=== PATIENT | male | born 1955 | race African-American/Black ===

== ENCOUNTER 2018-10-24 14:43 | Inpatient (IN) | payer MEDICARE, OTHER ==
[~2018-10-24] VITALS: Ht 165.1 cm; Wt 85.0 kg
[2018-10-24] MEDS ORDERED: SOD CHLORIDE 0.9% 1,000 ML IV STA (14:48)
--- NOTE | 2018-10-24 14:59 | ERD ---
ER Documentation Chief Complaint Chief Complaint ALOC x last night HPI 63-year-old male with a history of stroke and epilepsy with chronic confusion [facility] by the order of Dr. Wright due to increasing altered mental status since last night. He has been having shaking episodes but no true seizures. ROS Unable to obtain due to chronic encephalopathy Medications Home Meds Reported Medications Acetaminophen* (Tylenol*) 325 Mg Tablet, 650 MG PO Q6H PRN for MILD PAIN LEVEL 1-3, TAB 10/24/18 Timolol Maleate* (Timoptic*) 0.25%-5ml Opht, 1 DROP BOTH EYES BID, #1 EA 10/24/18 Hydrocodone/Acetaminophen ([place] 5-325 Tablet) 1 Each Tablet, 1 EACH PO Q6H PRN for FOR PAIN 4-01/29, TAB 10/24/18 Nitroglycerin* (Nitroglycerin* SL) 0.4 Mg Tab.subl, 0.4 MG SL Q5MIN PRN for CHEST PAIN, BOTTLE 10/24/18 Magnesium Hydroxide* (Milk Of Magnesia*) 400 Mg/5 Ml Oral.susp, 30 ML PO DAILY, ML 10/24/18 Levetiracetam* (Levetiracetam*) 1,000 Mg Tablet, 2000 MG PO BID, TAB 10/24/18 Hydralazine Hcl* (Hydralazine Hcl*) 25 Mg Tab, 25 MG PO Q6H PRN for IF SBP>150, #60 TAB 10/24/18 Sodium Phosphate,[place]-Dibasic (Enema Ready To Use) 133 Ml Enema, 118 ML RC NEEDED, ENEMA 10/24/18 Bisacodyl (Dulcolax) 10 Mg Supp.rect, 10 MG RC DAILY PRN for PRN, SUPP.RECT 10/24/18 Dorzolamide-Timolol* (Cosopt*) 2%-0.5% Pres Free Droperette, 1 DROP BOTH EYES BID, DROP 10/24/18 Carvedilol* (Carvedilol*) 12.5 Mg Tablet, 12.5 MG PO BID, #60 TAB HOLD IF SBP<110 OR HR<60 10/24/18 Lorazepam* (Lorazepam*) 1 Mg Tablet, 1 MG PO Q4H PRN for SEIZURES, #60 TAB STOP DATE 11/06/18 10/24/18 Aspirin* (Aspirin* Chew) 81 Mg Tab.chew, 81 MG PO DAILY, TAB.CHEW 10/24/18 Allergies Allergies: Coded Allergies: No Known Allergy (Unverified , 10/24/18) PMhx/Soc Medical and Surgical Hx: Unable to obtain History of Surgery: No (unk) Hx Neurological Disorder: Yes (Epilepsy, stroke affecting right side, apraxia, dementia) Hx Cardiac Disorders: Yes (HTN, HYPERLIPIDEMIA, CAD, NSTEMI) Hx Miscellaneous Medical Probl: Yes ( DM, glaucoma) Hx Alcohol Use: No Hx Substance Use: No Hx Tobacco Use: No FmHx Unable to obtain Physical Exam Vitals Vital Signs Date Temp Pulse Resp B/P (MAP) Pulse Ox O2 O2 Flow FiO2 Time Delivery Rate 10/24/18 81 18 157/67 99 Nasal 2.0 18:32 (97) Cannula 10/24/18 98.0 78 20 146/73 96 Room Air 17:30 (97) 10/24/18 98.2 76 18 172/77 100 Room Air 15:20 (108) 10/24/18 80 18 116/75 100 14:47 (89) Physical Exam Const: No acute distress. Only answers yes to all questions. Head: Atraumatic Eyes: Normal Conjunctiva ENT: Normal External Ears, Nose and Mouth. Neck: Full range of motion. No meningismus. Resp: Clear to auscultation bilaterally Cardio: Regular rate and rhythm, no murmurs Abd: Soft, non tender, non distended. Normal bowel sounds Skin: No petechiae or rashes Back: No midline or flank tenderness Ext: No cyanosis, or edema Neur: Awake and alert, no facial asymmetry, following some commands, moving all extremities spontaneously, motor weakness noted on the right compared to the left. Only answering yes to all questions. Normal speech. No seizure-like activity. Psych: Normal Mood and Affect Result Diagram: 10/24/18 1522 10/24/18 1522 Results 24 hrs Laboratory Tests Test 10/24/18 15:19 10/24/18 15:22 10/24/18 16:11 Bedside Glucose 244 mg/dL White Blood Count 14.3 10^3/ul Red Blood Count 4.31 10^6/ul Hemoglobin 12.7 g/dl Hematocrit 36.6 % Mean Corpuscular Volume 84.9 fl Mean Corpuscular Hemoglobin 29.5 pg Mean Corpuscular 34.7 g/dl Hemoglobin Concent Red Cell Distribution Width 11.3 % Platelet Count 225 10^3/UL Mean Platelet Volume 11.5 fl Immature Granulocytes % 0.500 % Neutrophils % 84.5 % Lymphocytes % 9.9 % Monocytes % 4.8 % Eosinophils % 0.2 % Basophils % 0.1 % Nucleated Red Blood Cells % 0.0 /100WBC Immature Granulocytes # 0.070 10^3/ul Neutrophils # 12.1 10^3/ul Lymphocytes # 1.4 10^3/ul Monocytes # 0.7 10^3/ul Eosinophils # 0.0 10^3/ul Basophils # 0.0 10^3/ul Nucleated Red Blood Cells # 0.0 10^3/ul Sodium Level 139 mmol/L Potassium Level 4.4 mmol/L Chloride Level 102 mmol/L Carbon Dioxide Level 30 mmol/L Anion Gap 7 Blood Urea Nitrogen 30 mg/dl Creatinine 1.69 mg/dl Est Glomerular Filtrat 50 mL/min Rate mL/min Glucose Level 266 mg/dl Calcium Level 8.8 mg/dl Total Bilirubin 0.5 mg/dl Direct Bilirubin 0.00 mg/dl Indirect Bilirubin 0.5 mg/dl Aspartate Amino Transf (AST/SGOT) 24 IU/L Alanine 21 IU/L Aminotransferase (ALT/SGPT) Alkaline Phosphatase 109 IU/L Troponin I 0.144 ng/ml Total Protein 7.3 g/dl Albumin 3.4 g/dl Globulin 3.90 g/dl Albumin/Globulin Ratio 0.87 Urine Color YELLOW Urine Clarity CLEAR Urine pH 6.0 Urine Specific [place] 1.014 Urine Ketones NEGATIVE mg/dL Urine Nitrite NEGATIVE mg/dL Urine Bilirubin NEGATIVE mg/dL Urine Urobilinogen NEGATIVE mg/dL Urine Leukocyte Esterase NEGATIVE Cher/ul Urine Microscopic RBC 9 /HPF Urine Microscopic WBC 1 /HPF Urine Bacteria FEW /HPF Urine Hemoglobin NEGATIVE mg/dL Urine Glucose 3+ mg/dL Urine Total Protein 3+ mg/dl Current Medications Medications Dose Sig/[place] Start Time Status Last (Trade) Ordered Route PRN Stop Time Admin Dose Reason Admin Sodium 1,000 ml @ Q1H STAT 10/24/18 DC 10/24/18 Chloride 1,000 mls/hr IV 14:48 10/24/18 15:16 15:47 Ondansetron 4 mg ER BRIDGE 7/5/19 HCl (Zofran PRN IV 17:30 10/25/18 Inj) NAUSEA/VOMITI 17:29 NG 650 mg ER BRIDGE 10/24/18 Acetaminophen PRN PO 17:30 10/25/18 (Tylenol .MILD PAIN 17:29 Tab) 1-3 OR TEMP Procedures/MDM EMERGENT LABS AND DIAGNOSTIC STUDIES: Lab Results above were reviewed and interpreted by me. CBC: Leukocytosis. Unknown etiology, doubt infection CMP: Elevated BUN and creatinine, consistent with chronic renal insufficiency, at patient's baseline. Hyperglycemic without evidence of acidosis. No evidence of clinically significant electrolyte abnormality, hypoglycemia, liver disease, or biliary obstruction Troponin elevated, possibly due to renal disease versus myocardial ischemia UA: no evidence of infection 12-lead EKG was interpreted by Cat Lanier MD: Normal Sinus Rhythm Normal axis Normal intervals No acute ST or T wave changes suggestive of acute ischemia or STEMI. Radiology Results as interpreted by Radiology below were reviewed by SMiranda Lanier MD: Chest x-ray shows no acute abnormalities CT brain shows no acute abnormalities Initial Nursing notes reviewed. Previous Medical Records requested via the Electronic Health Record. EMERGENCY DEPARTMENT COURSE / MEDICAL DECISION MAKING: Patient is presenting with increased seizure-like activity per the [facility]dc. He has not had any seizure-like activity here. Vitals were unremarkable. Basic work-up showed no significant abnormalities other than elevated troponin, which may be elevated secondary to his CKD. EKG does not show any signs of ischemia. CT head showed no acute abnormalities. Patient's case was discussed with his primary care doctor, Dr. Heydi Wright. He requested admission to Dr. Ugalde for observation. I spoke with Dr. Ugalde, he accepted the patient for admission. Departure Diagnosis: Primary Impression: Observed seizure-like activity Additional Impressions: Leukocytosis Leukocytosis type: unspecified Qualified Codes: D72.829 - Elevated white blood cell count, unspecified CKD (chronic kidney disease) Chronic kidney disease stage: unspecified stage Qualified Codes: N18.9 - Chronic kidney disease, unspecified Elevated troponin Condition: ANIBAL Griffin MD Oct 24, 2018 14:59
[2018-10-24] MEDS ORDERED: ASPI-903 PO (16:35)
[2018-10-24] MEDS ORDERED: LORA1TAB PO (16:36)
[2018-10-24] MEDS ORDERED: CARV12.579 PO (16:37)
[2018-10-24] MEDS ORDERED: DORZ1DRO7 BOTH EYES (16:38)
[2018-10-24] MEDS ORDERED: BISA10SU55 RC (16:39)
[2018-10-24] MEDS ORDERED: HYDR-3671 PO (16:40)
[2018-10-24] MEDS ORDERED: NA P133E39 RC (16:40)
[2018-10-24] MEDS ORDERED: LEVE10006 PO (16:41)
[2018-10-24] MEDS ORDERED: MAGN400O19 PO (16:42)
[2018-10-24] MEDS ORDERED: NITR0.4T32 SL (16:42)
[2018-10-24] MEDS ORDERED: HYDR-4011 PO (16:43)
[2018-10-24] MEDS ORDERED: TML25OP5 BOTH EYES (16:44)
[2018-10-24] MEDS ORDERED: ACET325T33 PO (16:46)
[2018-10-24] MEDS ORDERED: ACETAMINOPHEN 325 MG TAB PO PRN (17:30)
[2018-10-24] MEDS ORDERED: ONDANSETRON 4 MG INJ IV PRN (17:30)
[2018-10-25] MEDS ORDERED: ASPIRIN 81 MG TAB PO ONE (05:30)
[2018-10-25 06:25] VITALS: PULSE 77
[2018-10-25 06:54] VITALS: BP 174/78; PULSE 78; RESP 23
[2018-10-25 07:27] VITALS: BP 166/74; PULSE 76; RESP 16
[2018-10-25 08:00] VITALS: Ht 165.1 cm; Wt 85.0 kg
[2018-10-25] MEDS: LEVETIRACETAM 500 MG (PMX) 100 ML IVPB SCH ×2 (08:53→22:25)
[2018-10-25] MEDS ORDERED: METOPROLOL 50 MG TAB PO ONE (09:00)
[2018-10-25 11:11] VITALS: BP 155/66; PULSE 69; RESP 17
[2018-10-25 15:24] VITALS: BP 145/67; PULSE 72; RESP 17
--- NOTE | 2018-10-25 16:40 | HP ---
Date/Time of Note Date/Time of Note DATE: 10/25/18 TIME: 16:05 Assessment/Plan VTE Prophylaxis Risk score (from Nsg)>0 risk: 3 SCD applied (from Nsg): Yes Lines/Catheters IV Catheter Type (from Nrsg): Saline Lock Assessment/Plan Assessment/Plan NSTEMI - Cardiology consult- notified Observed seizure-like activity - Neurology consulted Leukocytosis - monitor CBC CKD (chronic kidney disease) - Nephro consult notified DM HTN CAD Result Diagram: 10/24/18 1522 10/24/18 1522 Results 24hrs Laboratory Tests Test 10/24/18 16:11 10/25/18 06:00 Urine Color YELLOW Urine Clarity CLEAR Urine pH 6.0 Urine Specific [place] 1.014 Urine Ketones NEGATIVE Urine Nitrite NEGATIVE Urine Bilirubin NEGATIVE Urine Urobilinogen NEGATIVE Urine Leukocyte Esterase NEGATIVE Urine Microscopic RBC 9 H Urine Microscopic WBC 1 Urine Bacteria FEW A Urine Hemoglobin NEGATIVE Urine Glucose 3+ H Urine Total Protein 3+ H Troponin I 0.089 HIV (1&2) Antibody NEGATIVE HPI/ROS Admit Date/Time Admit Date/Time Oct 24, 2018 at 17:29 PMH/Family/Social Past Medical History Medications Current Medications Ondansetron HCl (Zofran Inj) 4 mg ER BRIDGE PRN IV NAUSEA/VOMITING; Start 10/24/18 at 17:30; Stop 10/25/18 at 17:29 Acetaminophen (Tylenol Tab) 650 mg ER BRIDGE PRN PO .MILD PAIN 1-3 OR TEMP; Start 10/24/18 at 17:30; Stop 10/25/18 at 17:29 Levetiracetam 100 ml @ 400 mls/hr BID IVPB Last administered on 10/25/18at 08:53; Admin Dose 400 MLS/HR; Start 10/25/18 at 09:00 Hydralazine HCl (Apresoline) 10 mg Q4H PRN IV ELEVATED SYSTOLIC BP; Start 10/25/18 at 05:30 Coded Allergies: No Known Allergy (Unverified , 10/24/18) Family History Significant Family History: other Social History Smoking Status: Never smoker Exam/Review of Systems Vital Signs Vitals Vital Signs Date Temp Pulse Resp B/P (MAP) Pulse Ox O2 O2 Flow FiO2 Time Delivery Rate 10/25/18 97.9 72 17 145/67 98 15:24 (93) 10/25/18 Nasal 2.0 08:40 Cannula Intake and Output 10/24/18 10/24/18 10/25/18 1515:00 23:00 07:00 IntakeIntake Total 1000 ml BalanceBalance 1000 ml Exam Constitutional: alert Psych: nl mood/affect CAITY DAVIES Oct 25, 2018 16:15
--- NOTE | 2018-10-25 19:41 | CONS ---
Assessment/Plan Assessment/Plan Assessment/Plan (Daily) 1. acute kidney injury on CKD III due to Prerenal azotemia 2. H/o CKD III due to HTN 3. Breakthrough seizures with H/o Seizure disorder 4. H/o HTN 5. H/o HL 6. Elevated Troponin 7.Leucocytosis Plan: admitted to telemetry floor IVF For hydration BUN/Cr bumped to 32/1.81, other electrolytes stable IV keppra 500mg BID Nifedipine 30mg PO daily Medical [facility] for Elevated troponin Thanks for consultation , I will continue to follow up Consultation Date/Type/Reason Admit Date/Time Oct 24, 2018 at 17:29 Date of Consultation: Oct 25, 2018 Type of Consult NEPHROLOGY Reason for Consultation Acute on chronic renal failure, H/o CKD III Requesting Provider: SAKSHI CRUZ MD Date/Time of Note DATE: 10/25/18 TIME: 19:40 Hx of Present Illness 63-year-old male with a history of stroke and epilepsy with chronic confusion [facility] his [facility] by the order of Dr. Webb due to increasing altered mental status since last night. He has been having shaking episodes but no true seizures. BUN/Cr 30/1.69 on admission which bumped to 32/1.81- Renal has been consulted for acute renal failure vs acute on chronic renal failure Constitutional: no complaints ENT: no complaints Respiratory: no complaints Cardiovascular: no complaints Gastrointestinal: no complaints Genitourinary: no complaints Musculoskeletal: no complaints Skin: no complaints Neurologic: seizure Endocrine: no complaints Lymphatic: no complaints Psychological: no complaints Immunologic: no complaints Past Medical History Medical History: high cholesterol, hypertension, other (Seizures, H/o CKD ) Home Meds Reported Medications Acetaminophen* (Tylenol*) 325 Mg Tablet, 650 MG PO Q6H PRN for MILD PAIN LEVEL 1-3, TAB 10/24/18 Timolol Maleate* (Timoptic*) 0.25%-5ml Opht, 1 DROP BOTH EYES BID, #1 EA 10/24/18 Hydrocodone/Acetaminophen ([place] 5-325 Tablet) 1 Each Tablet, 1 EACH PO Q6H PRN for FOR PAIN 4-10/10, TAB 10/24/18 Nitroglycerin* (Nitroglycerin* SL) 0.4 Mg Tab.subl, 0.4 MG SL Q5MIN PRN for CHEST PAIN, BOTTLE 10/24/18 Magnesium Hydroxide* (Milk Of Magnesia*) 400 Mg/5 Ml Oral.susp, 30 ML PO DAILY, ML 10/24/18 Levetiracetam* (Levetiracetam*) 1,000 Mg Tablet, 2000 MG PO BID, TAB 10/24/18 Hydralazine Hcl* (Hydralazine Hcl*) 25 Mg Tab, 25 MG PO Q6H PRN for IF SBP>150, #60 TAB 10/24/18 Sodium Phosphate,[place]-Dibasic (Enema Ready To Use) 133 Ml Enema, 118 ML RC NEEDED, ENEMA 10/24/18 Bisacodyl (Dulcolax) 10 Mg Supp.rect, 10 MG RC DAILY PRN for PRN, SUPP.RECT 10/24/18 Dorzolamide-Timolol* (Cosopt*) 2%-0.5% Pres Free Droperette, 1 DROP BOTH EYES BID, DROP 10/24/18 Carvedilol* (Carvedilol*) 12.5 Mg Tablet, 12.5 MG PO BID, #60 TAB HOLD IF SBP<110 OR HR<60 10/24/18 Lorazepam* (Lorazepam*) 1 Mg Tablet, 1 MG PO Q4H PRN for SEIZURES, #60 TAB STOP DATE 11/06/18 10/24/18 Aspirin* (Aspirin* Chew) 81 Mg Tab.chew, 81 MG PO DAILY, TAB.CHEW 10/24/18 Medications Current Medications Levetiracetam 100 ml @ 400 mls/hr BID IVPB Last administered on 10/25/18at 08:53; Admin Dose 400 MLS/HR; Start 10/25/18 at 09:00 Hydralazine HCl (Apresoline) 10 mg Q4H PRN IV ELEVATED SYSTOLIC BP; Start 10/25/18 at 05:30 Allergies: Coded Allergies: No Known Allergy (Unverified , 10/24/18) Past Surgical History Past Surgical Hx: no surgical history Family History Significant Family History: no pertinent family hx Social History Alcohol Use: none Smoking Status: Never smoker Drug Use: none Exam/Review of Systems Exam Vitals Vital Signs Date Temp Pulse Resp B/P (MAP) Pulse Ox O2 O2 Flow FiO2 Time Delivery Rate 10/25/18 97.9 72 17 145/67 98 15:24 (93) 10/25/18 Nasal 2.0 08:40 Cannula Intake and Output 10/24/18 10/24/18 10/25/18 1515:00 23:00 07:00 IntakeIntake Total 1000 ml BalanceBalance 1000 ml Constitutional: alert Psych: no complaints Head: normocephalic Eyes: nl conjunctiva ENMT: nl external ears & nose Neck: supple, non-tender Respiratory: clear to auscultation, diminished breath sounds Cardiovascular: regular rate and rhythm, nl pulses Gastrointestinal: soft, non-tender Musculoskeletal: muscle weakness, swelling (1-2+ pitting edema ) Extremities: normal pulses Neurological: KEYSMITH II-XII intact, nl mental status, nl speech, nl strength Skin: nl turgor Lymph: nl lymph nodes Results Result Diagram: 10/24/18 1522 10/24/18 1522 Results 24hrs Laboratory Tests Test 10/25/18 06:00 Troponin I 0.089 HIV (1&2) Antibody NEGATIVE Medications Medication Current Medications Levetiracetam 100 ml @ 400 mls/hr BID IVPB Last administered on 10/25/18at 08:53; Admin Dose 400 MLS/HR; Start 10/25/18 at 09:00 Hydralazine HCl (Apresoline) 10 mg Q4H PRN IV ELEVATED SYSTOLIC BP; Start 10/25/18 at 05:30 EVONNE WEBB MD Oct 25, 2018 19:41
[2018-10-25 20:00] VITALS: BP 171/75; PULSE 80; RESP 18
[2018-10-26] VITALS: BP 153/58; PULSE 65; RESP 19
[2018-10-26 04:36] VITALS: BP 174/79; PULSE 71; RESP 20
[2018-10-26] MEDS: hydrALAzine 20 MG INJ IV PRN (05:41)
[2018-10-26 07:21] VITALS: BP 168/83; PULSE 78; RESP 18
--- NOTE | 2018-10-26 08:06 | CONSI ---
Assessment/Plan Assessment/Plan Assessment/Plan (Recall) 63 M c/ reported Hx of stroke c/b epilepsy, who presents for evaluation of ams. He was noted to have shaking episodes, for which neurology is consulted.. It is not clear if the shaking was epileptic from documentation... He has a noted peripheral leukocytosis, renal insufficiency of uncertain chr onicity, and evidence of NSTEMI; acute systemic illness could certainly lower his seizure threshold. As an aside, the same could additionally predispose to an acute toxic-metabolic on chronic encephalopathy... Head CT is notable for sequelae of prior left hemispheric stroke, without obvious acute pathology. P: MRI brain when medically able to definitively exclude acute ischemia Agree w/ low dose Keppra for now, given renal insufficiency which has likely predisposed to Keppra toxicity on his outpatient dose of 2000mg bid.. Add Trileptal for supplemental seizure ppx Ativan iv prn prolonged seizure of cluster Agree w/ asa for secondary stroke prevention add lipid panel, mag, phos Continued medical management and supportive care per primary PT/OT/ST as necessary Will follow clinically Consultation Date/Type/Reason Admit Date/Time Oct 24, 2018 at 17:29 Type of Consult Neurology Reason for Consultation shaking, ams Requesting Provider: SAKSHI CRUZ MD Date/Time of Note DATE: 10/26/18 TIME: 07:58 Hx of Present Illness 63 M c/ reported Hx of stroke c/b epilepsy.. Unable to contribute a Hx.. Elsewhere noted: 63-year-old male with a history of stroke and epilepsy with chronic confusion sent by his custodial facility by the order of Dr. Wright due to increasing altered mental status since last night. He has been having shaking episodes but no true seizures. Subjective hx not possible: pt non-verbal Objective Exam Vitals Vital Signs Date Temp Pulse Resp B/P (MAP) Pulse Ox O2 O2 Flow FiO2 Time Delivery Rate 10/26/18 98.6 78 18 168/83 98 07:21 (111) 10/26/18 Nasal 2.0 04:36 Cannula Intake and Output 10/25/18 10/25/18 10/26/18 1414:59 22:59 06:59 IntakeIntake Total 1000 ml 400 ml 250 ml BalanceBalance 1000 ml 400 ml 250 ml Exam PE: Gen Appearance: No Apparent Distress HEENT: Normocephalic Cardiovascular: Regular rate Abdomen: Soft Extremities: Dry NE: The patient was alert though nonverbal. He did not follow commands. Cranial nerve examination was limited by mental status. Pupils were equal and reactive to light. There was no afferent pupillary defect. Funduscopic ex amination was limited. Face was grossly symmetric, w/ present corneal reflexes. Tone was normal. Muscle bulk was normal. I did not see fasciculations. The patient withdrew to noxious stimulation x 4. Coordination and gait testing was limited by mental status. Arm and leg reflexes were within normal limits and symmetric. Alatorre's sign was absent. Plantar responses were flexor. Results Result Diagram: 10/24/18 1522 10/24/18 1522 Past Medical History reviewed Home Meds Reported Medications Acetaminophen* (Tylenol*) 325 Mg Tablet, 650 MG PO Q6H PRN for MILD PAIN LEVEL 1-3, TAB 10/24/18 Timolol Maleate* (Timoptic*) 0.25%-5ml Opht, 1 DROP BOTH EYES BID, #1 EA 10/24/18 Hydrocodone/Acetaminophen ([place] 5-325 Tablet) 1 Each Tablet, 1 EACH PO Q6H PRN for FOR PAIN 4-10/10, TAB 10/24/18 Nitroglycerin* (Nitroglycerin* SL) 0.4 Mg Tab.subl, 0.4 MG SL Q5MIN PRN for CHEST PAIN, BOTTLE 10/24/18 Magnesium Hydroxide* (Milk Of Magnesia*) 400 Mg/5 Ml Oral.susp, 30 ML PO DAILY, ML 10/24/18 Levetiracetam* (Levetiracetam*) 1,000 Mg Tablet, 2000 MG PO BID, TAB 10/24/18 Hydralazine Hcl* (Hydralazine Hcl*) 25 Mg Tab, 25 MG PO Q6H PRN for IF SBP>150, #60 TAB 10/24/18 Sodium Phosphate,[place]-Dibasic (Enema Ready To Use) 133 Ml Enema, 118 ML RC NEEDED, ENEMA 10/24/18 Bisacodyl (Dulcolax) 10 Mg Supp.rect, 10 MG RC DAILY PRN for PRN, SUPP.RECT 10/24/18 Dorzolamide-Timolol* (Cosopt*) 2%-0.5% Pres Free Droperette, 1 DROP BOTH EYES BID, DROP 10/24/18 Carvedilol* (Carvedilol*) 12.5 Mg Tablet, 12.5 MG PO BID, #60 TAB HOLD IF SBP<110 OR HR<60 10/24/18 Lorazepam* (Lorazepam*) 1 Mg Tablet, 1 MG PO Q4H PRN for SEIZURES, #60 TAB STOP DATE 11/06/18 10/24/18 Aspirin* (Aspirin* Chew) 81 Mg Tab.chew, 81 MG PO DAILY, TAB.CHEW 10/24/18 Medications Current Medications Levetiracetam 100 ml @ 400 mls/hr BID IVPB Last administered on 10/25/18at 22:25; Admin Dose 400 MLS/HR; Start 10/25/18 at 09:00 Hydralazine HCl (Apresoline) 10 mg Q4H PRN IV ELEVATED SYSTOLIC BP Last administered on 10/26/18at 05:41; Admin Dose 10 MG; Start 10/25/18 at 05:30 Allergies: Coded Allergies: No Known Allergy (Unverified , 10/24/18) Social History Alcohol Use: none Smoking Status: Never smoker FLASH SPRAGUE Oct 26, 2018 08:06
[2018-10-26] MEDS: OXCARBAZEPINE 300 MG TAB PO SCH ×2 (09:17→20:50)
[2018-10-26] MEDS: LEVETIRACETAM 500 MG (PMX) 100 ML IVPB SCH ×2 (09:17→20:50)
--- NOTE | 2018-10-26 10:01 | PN ---
Date/Time of Note Date/Time of Note DATE: 10/26/18 TIME: 09:57 Assessment/Plan VTE Prophylaxis Risk score (from Ns)>0 risk: 4 SCD applied (from [facility] [place] Yes SCD contraindicated: other Pharmacological prophylaxis: other Pharm contraindication: other Lines/Catheters IV Catheter Type (from [facility] Saline Lock Assessment/Plan Assessment/Plan NSTEMI - per Cardiology consult Observed seizure-like activity - per Neurology consult Leukocytosis - monitor CBC CKD (chronic kidney disease) - per Nephro consult DM - Glycemic control HTN - monitor; stable CAD Patient seen in collaboration with Dr Ugalde Result Diagram: 10/26/18 0742 10/26/18 0742 Results 24hrs Laboratory Tests Test 10/26/18 07:42 White Blood Count 13.4 H Red Blood Count 3.90 L Hemoglobin 11.6 L Hematocrit 34.3 L Mean Corpuscular Volume 87.9 Mean Corpuscular Hemoglobin 29.7 Mean Corpuscular Hemoglobin Concent 33.8 Red Cell Distribution Width 11.6 Platelet Count 227 Mean Platelet Volume 12.0 H Immature Granulocytes % 0.400 Neutrophils % 69.3 Lymphocytes % 18.2 Monocytes % 8.5 Eosinophils % 3.1 Basophils % 0.5 Nucleated Red Blood Cells % 0.0 Immature Granulocytes # 0.050 H Neutrophils # 9.2 H Lymphocytes # 2.4 Monocytes # 1.1 H Eosinophils # 0.4 Basophils # 0.1 Nucleated Red Blood Cells # 0.0 Sodium Level 144 Potassium Level 4.4 Chloride Level 109 Carbon Dioxide Level 30 Anion Gap 5 Blood Urea Nitrogen 32 H Creatinine 1.81 H Est Glomerular Filtrat Rate mL/min 46 L Glucose Level 214 Calcium Level 9.1 Subjective 24 Hr Interval Summary Constitutional: requiring O2 Exam/Review of Systems Exam Vitals Vital Signs Date Temp Pulse Resp B/P (MAP) Pulse Ox O2 O2 Flow FiO2 Time Delivery Rate 10/26/18 Nasal 2.0 08:21 Cannula 10/26/18 98.6 78 18 168/83 98 07:21 (111) Intake and Output 10/25/18 10/25/18 10/26/18 1515:00 23:00 07:00 IntakeIntake Total 1000 ml 400 ml 250 ml BalanceBalance 1000 ml 400 ml 250 ml Constitutional: alert, well developed Psych: nl mood/affect Eyes: nl lids, nl sclera ENMT: nl external ears & nose Neck: non-tender, other (trach inatct) Respiratory: diminished breath sounds Cardiovascular: nl pulses, other (s1s2) Gastrointestinal: soft, other (gt intact) Musculoskeletal: nl extremities to inspection Extremities: normal pulses Neurological: confused Results Results 24hrs Laboratory Tests Test 10/26/18 07:42 White Blood Count 13.4 H Red Blood Count 3.90 L Hemoglobin 11.6 L Hematocrit 34.3 L Mean Corpuscular Volume 87.9 Mean Corpuscular Hemoglobin 29.7 Mean Corpuscular Hemoglobin Concent 33.8 Red Cell Distribution Width 11.6 Platelet Count 227 Mean Platelet Volume 12.0 H Immature Granulocytes % 0.400 Neutrophils % 69.3 Lymphocytes % 18.2 Monocytes % 8.5 Eosinophils % 3.1 Basophils % 0.5 Nucleated Red Blood Cells % 0.0 Immature Granulocytes # 0.050 H Neutrophils # 9.2 H Lymphocytes # 2.4 Monocytes # 1.1 H Eosinophils # 0.4 Basophils # 0.1 Nucleated Red Blood Cells # 0.0 Sodium Level 144 Potassium Level 4.4 Chloride Level 109 Carbon Dioxide Level 30 Anion Gap 5 Blood Urea Nitrogen 32 H Creatinine 1.81 H Est Glomerular Filtrat Rate mL/min 46 L Glucose Level 214 Calcium Level 9.1 Medications Medication Current Medications Levetiracetam 100 ml @ 400 mls/hr BID IVPB Last administered on 10/26/18at 09:17; Admin Dose 400 MLS/HR; Start 10/25/18 at 09:00 Hydralazine HCl (Apresoline) 10 mg Q4H PRN IV ELEVATED SYSTOLIC BP Last administered on 10/26/18at 05:41; Admin Dose 10 MG; Start 10/25/18 at 05:30 Oxcarbazepine (Trileptal) 300 mg BID PO Last administered on 10/26/18at 09:17; Admin Dose 300 MG; Start 10/26/18 at 09:00 CAITY DAVIES Oct 26, 2018 10:01
--- NOTE | 2018-10-26 11:14 | CONS ---
Assessment/Plan Assessment/Plan Assessment/Plan (Daily) 1. acute kidney injury on CKD III due to Prerenal azotemia 2. H/o CKD III due to HTN 3. Breakthrough seizures with H/o Seizure disorder 4. H/o HTN 5. H/o HL 6. Elevated Troponin 7.Leucocytosis Plan: Nifdipien Xl 30mg po daily with coreg 6.25 mg BID IV keppra 500mg BID Medical management for elevated troponin BUN/Cr bumped to 32/1.81, other electrolytes stable will give IVF NS at 70 cc/ hr x 2 liter then stop will follow up Consultation Date/Type/Reason Admit Date/Time Oct 24, 2018 at 17:29 Initial Consult Date 10/25/18 Type of Consult NEPHROLOGY Requesting Provider: SAKSHI CRUZ MD Date/Time of Note DATE: 10/26/18 TIME: 11:14 Exam/Review of Systems Exam Vitals Vital Signs Date Temp Pulse Resp B/P (MAP) Pulse Ox O2 O2 Flow FiO2 Time Delivery Rate 10/26/18 Nasal 2.0 08:21 Cannula 10/26/18 98.6 78 18 168/83 98 07:21 (111) Intake and Output 10/25/18 10/25/18 10/26/18 1515:00 23:00 07:00 IntakeIntake Total 1000 ml 400 ml 250 ml BalanceBalance 1000 ml 400 ml 250 ml Exam Constitutional: alert, awake no acute distress Respiratory: clear to auscultation, diminished breath sounds Cardiovascular: regular rate and rhythm, nl pulses Gastrointestinal: soft, non-tender Musculoskeletal: muscle weakness, swelling (1-2+ pitting edema ) Extremities: normal pulses Neurological: PNEUMATIC RIVETER II-XII intact, nl mental status, nl speech, nl strength Results Result Diagram: 10/26/18 0742 10/26/18 0742 Results 24hrs Laboratory Tests Test 10/26/18 07:42 White Blood Count 13.4 H Red Blood Count 3.90 L Hemoglobin 11.6 L Hematocrit 34.3 L Mean Corpuscular Volume 87.9 Mean Corpuscular Hemoglobin 29.7 Mean Corpuscular Hemoglobin Concent 33.8 Red Cell Distribution Width 11.6 Platelet Count 227 Mean Platelet Volume 12.0 H Immature Granulocytes % 0.400 Neutrophils % 69.3 Lymphocytes % 18.2 Monocytes % 8.5 Eosinophils % 3.1 Basophils % 0.5 Nucleated Red Blood Cells % 0.0 Immature Granulocytes # 0.050 H Neutrophils # 9.2 H Lymphocytes # 2.4 Monocytes # 1.1 H Eosinophils # 0.4 Basophils # 0.1 Nucleated Red Blood Cells # 0.0 Sodium Level 144 Potassium Level 4.4 Chloride Level 109 Carbon Dioxide Level 30 Anion Gap 5 Blood Urea Nitrogen 32 H Creatinine 1.81 H Est Glomerular Filtrat Rate mL/min 46 L Glucose Level 214 Calcium Level 9.1 Phosphorus Level 3.4 Magnesium Level 2.1 Triglycerides Level 84 Cholesterol Level 229 H LDL Cholesterol, Calculated 179 HDL Cholesterol 33 Cholesterol/HDL Ratio 6.9 Medications Medication Current Medications Levetiracetam 100 ml @ 400 mls/hr BID IVPB Last administered on 10/26/18at 09:17; Admin Dose 400 MLS/HR; Start 10/25/18 at 09:00 Hydralazine HCl (Apresoline) 10 mg Q4H PRN IV ELEVATED SYSTOLIC BP Last administered on 10/26/18at 05:41; Admin Dose 10 MG; Start 10/25/18 at 05:30 Oxcarbazepine (Trileptal) 300 mg BID PO Last administered on 10/26/18at 09:17; Admin Dose 300 MG; Start 10/26/18 at 09:00 EVONNE WEBB MD Oct 26, 2018 11:14
[2018-10-26 12:06] VITALS: BP 177/83; PULSE 83; RESP 20
--- NOTE | 2018-10-26 12:45 | CONS ---
Consultation Date/Type/Reason Admit Date/Time Oct 24, 2018 at 17:29 Type of Consult Cardiology Date/Time of Note DATE: 10/26/18 TIME: 12:44 Hx of Present Illness 63 yo with small troponin elevation - given overall debilitated state - I think med rx is reasonable nw - add ASA/BB/ HTN Rx - avoid Norm-I with ARF # [id number] Full note dictated Past Medical History Home Meds Reported Medications Acetaminophen* (Tylenol*) 325 Mg Tablet, 650 MG PO Q6H PRN for MILD PAIN LEVEL 1-3, TAB 10/24/18 Timolol Maleate* (Timoptic*) 0.25%-5ml Opht, 1 DROP BOTH EYES BID, #1 EA 10/24/18 Hydrocodone/Acetaminophen ([place] 5-325 Tablet) 1 Each Tablet, 1 EACH PO Q6H PRN for FOR PAIN 4-01/29, TAB 10/24/18 Nitroglycerin* (Nitroglycerin* SL) 0.4 Mg Tab.subl, 0.4 MG SL Q5MIN PRN for CHEST PAIN, BOTTLE 10/24/18 Magnesium Hydroxide* (Milk Of Magnesia*) 400 Mg/5 Ml Oral.susp, 30 ML PO DAILY, ML 10/24/18 Levetiracetam* (Levetiracetam*) 1,000 Mg Tablet, 2000 MG PO BID, TAB 10/24/18 Hydralazine Hcl* (Hydralazine Hcl*) 25 Mg Tab, 25 MG PO Q6H PRN for IF SBP>150, #60 TAB 10/24/18 Sodium Phosphate,Perkins-Dibasic (Enema Ready To Use) 133 Ml Enema, 118 ML RC NEEDED, ENEMA 10/24/18 Bisacodyl (Dulcolax) 10 Mg Supp.rect, 10 MG RC DAILY PRN for PRN, SUPP.RECT 10/24/18 Dorzolamide-Timolol* (Cosopt*) 2%-0.5% Pres Free Droperette, 1 DROP BOTH EYES BID, DROP 10/24/18 Carvedilol* (Carvedilol*) 12.5 Mg Tablet, 12.5 MG PO BID, #60 TAB HOLD IF SBP<110 OR HR<60 10/24/18 Lorazepam* (Lorazepam*) 1 Mg Tablet, 1 MG PO Q4H PRN for SEIZURES, #60 TAB STOP DATE 11/06/18 10/24/18 Aspirin* (Aspirin* Chew) 81 Mg Tab.chew, 81 MG PO DAILY, TAB.CHEW 10/24/18 Medications Current Medications Levetiracetam 100 ml @ 400 mls/hr BID IVPB Last administered on 10/26/18at 09:17; Admin Dose 400 MLS/HR; Start 10/25/18 at 09:00 Hydralazine HCl (Apresoline) 10 mg Q4H PRN IV ELEVATED SYSTOLIC BP Last administered on 10/26/18at 05:41; Admin Dose 10 MG; Start 10/25/18 at 05:30 Oxcarbazepine (Trileptal) 300 mg BID PO Last administered on 10/26/18at 09:17; Admin Dose 300 MG; Start 10/26/18 at 09:00 Allergies: Coded Allergies: No Known Allergy (Unverified , 10/24/18) Social History Alcohol Use: none Smoking Status: Never smoker Exam/Review of Systems Vital Signs Vitals Vital Signs Date Temp Pulse Resp B/P (MAP) Pulse Ox O2 O2 Flow FiO2 Time Delivery Rate 10/26/18 98.5 83 20 177/83 98 12:06 (114) 10/26/18 Nasal 2.0 08:21 Cannula Intake and Output 10/25/18 10/25/18 10/26/18 1515:00 23:00 07:00 IntakeIntake Total 1000 ml 400 ml 250 ml BalanceBalance 1000 ml 400 ml 250 ml Labs Result Diagram: 10/26/18 0742 10/26/18 0742 Results 24hrs Laboratory Tests Test 10/26/18 07:42 White Blood Count 13.4 H Red Blood Count 3.90 L Hemoglobin 11.6 L Hematocrit 34.3 L Mean Corpuscular Volume 87.9 Mean Corpuscular Hemoglobin 29.7 Mean Corpuscular Hemoglobin Concent 33.8 Red Cell Distribution Width 11.6 Platelet Count 227 Mean Platelet Volume 12.0 H Immature Granulocytes % 0.400 Neutrophils % 69.3 Lymphocytes % 18.2 Monocytes % 8.5 Eosinophils % 3.1 Basophils % 0.5 Nucleated Red Blood Cells % 0.0 Immature Granulocytes # 0.050 H Neutrophils # 9.2 H Lymphocytes # 2.4 Monocytes # 1.1 H Eosinophils # 0.4 Basophils # 0.1 Nucleated Red Blood Cells # 0.0 Sodium Level 144 Potassium Level 4.4 Chloride Level 109 Carbon Dioxide Level 30 Anion Gap 5 Blood Urea Nitrogen 32 H Creatinine 1.81 H Est Glomerular Filtrat Rate mL/min 46 L Glucose Level 214 Calcium Level 9.1 Phosphorus Level 3.4 Magnesium Level 2.1 Triglycerides Level 84 Cholesterol Level 229 H LDL Cholesterol, Calculated 179 HDL Cholesterol 33 Cholesterol/HDL Ratio 6.9 Medications Medications Current Medications Levetiracetam 100 ml @ 400 mls/hr BID IVPB Last administered on 10/26/18 09:17; Admin Dose 400 MLS/HR; Start 10/25/18 at 09:00 Hydralazine HCl (Apresoline) 10 mg Q4H PRN IV ELEVATED SYSTOLIC BP Last administered on 10/26/18 05:41; Admin Dose 10 MG; Start 10/25/18 at 05:30 Oxcarbazepine (Trileptal) 300 mg BID PO Last administered on 10/26/18 09:17; Admin Dose 300 MG; Start 10/26/18 at 09:00 ROBERTO REYES MD Oct 26, 2018 12:45
[2018-10-26] MEDS: NIFEdipine (XL) 30 MG TAB PO SCH (14:31)
[2018-10-26] MEDS: ASPIRIN (EC) 81 MG TAB PO SCH (14:31)
[2018-10-26 16:27] VITALS: BP 159/78; PULSE 81; RESP 18
--- NOTE | 2018-10-26 16:46 | CONS ---
DATE OF ADMISSION: 10/24/2018 DATE OF CONSULTATION: 10/26/2018 TYPE OF CONSULTATION: Cardiology. REFERRING PHYSICIAN: Sakshi Cruz MD REASON FOR EVALUATION: Elevated troponins. HISTORY OF PRESENT ILLNESS: Mr. Moore is a 63-year-old gentleman with hypertension, dyslipidemia, hi story of chronic confused state, residing in a nursing facility, also history of hypertension, histor y of diabetes, history of prior stroke, encephalopathy, who comes in hospital now for evaluation of p ossible seizure activity. On presentation, the patient was noted to elevated troponins and I have be en asked to see the patient in consultation. The patient does have a history of elevated troponins i n the past. On last admission, troponin was 0.2. Currently, the patient is hemodynamically stable. He is a very difficult historian and he does not really respond appropriately to commands and he appe ars to be hemodynamically stable. Blood pressure is well maintained. Although his troponin is sligh tly elevated, his EKG shows some nonspecific ST-T changes. I think for now, conservative therapy renae l be reasonable given his overall state. We will continue to monitor clinically. If the patient has hemodynamic instability or troponin rise, at that time we will continue further risk stratification. For now, I think medical therapy would be most appropriate. PAST MEDICAL HISTORY: 1. Hypertension. 2. Dyslipidemia. 3. History of seizure disorder. 4. History of diabetes. 5. Prior history of CVA. 6. Encephalopathy. 7. Chronic debilitated state. 8. Likely coronary artery disease. ALLERGIES: NO KNOWN DRUG ALLERGIES. SOCIAL HISTORY: The patient used to smoke, does not smoke anymore, does not drink, does not use drug s. FAMILY HISTORY: Negative for sudden cardiac or premature coronary artery disease. MEDICATIONS: The patient is on: 1. Cardizem. 2. . 3. Hydralazine. REVIEW OF SYSTEMS: CONSTITUTIONAL: No fevers, no chills, no recent weight change. HEENT: No change in vision or hearing. CARDIAC: No chest pain reported now. RESPIRATORY: No shortness of breath. GASTROINTESTINAL: No nausea, vomiting. GENITOURINARY: No dysuria, hematuria. NEUROLOGIC: History of seizure, history of chronic debilitated state. PHYSICAL EXAMINATION: VITAL SIGNS: Temperature is 98.5, heart rate 83, blood pressure now 177/80. GENERAL: He is a thin gentleman in no acute distress, alert and oriented x0 to 1, not really aware o f his condition, not responding appropriately, but able to vocalize something. NECK: Supple. JVD is 6 cm. No lymphadenopathy, no thyromegaly. HEART: Regular, soft holosystolic murmur. PMI is minimally displaced. There is no S3. LUNGS: Coarse to base. ABDOMEN: Distended. Bowel sounds are present. There is no hepatosplenomegaly. GENITOURINARY: Intact. EXTREMITIES: Show no clubbing, cyanosis. Trace edema. LABORATORY DATA: White blood cell count 7.4, hemoglobin 11.6, platelets 227. INR is 1.0. Sodium 14 4, potassium 4.4, BUN is 32, creatinine 1.8. Troponin went from 0.144 to 0.089. ASSESSMENT AND PLAN: 1. Elevated troponin. The patient has minimally elevated troponins on presentation of unclear signi ficance as the patient does not report any ashley chest pain. I think medical therapy is reasonable f or now. We will add a small dose of aspirin to his regimen and continue to optimize blood pressure. 2. Hypertension. Blood pressure is on the high side, on medical regimen now. His creatinine is matthew vated. We will avoid LOKESH inhibitor, but I think some small dose of beta cedrick and nonspecific like calcium channel cedrick would be reasonable options. 3. Shortness of breath. We will follow up with a 2D echo. 4. Prior history of seizure. Defer to neurology team. Continue to follow. 5. History of cerebrovascular accident. Continue skin care as indicated. I would like to thank Dr. Cruz for referring this patient for my evaluation. Dictated By: ROBERTO REYES MD ML/NTS Conf#: [id number] DID#: [id number] CC: EVONNE WEBB MD; SAKSHI CRUZ MD;*End*
[2018-10-26 20:00] VITALS: BP 136/64; PULSE 74; RESP 19
[2018-10-26] MEDS: SOD CHLORIDE 0.9% 1,000 ML IV SCH (22:59)
[2018-10-27] VITALS: BP 123/57; PULSE 72; RESP 18
[2018-10-27 04:00] VITALS: BP 126/59; PULSE 70; RESP 18
[2018-10-27 07:07] VITALS: BP 154/70; PULSE 69; RESP 18
[2018-10-27] MEDS: ASPIRIN (EC) 81 MG TAB PO SCH (09:46)
[2018-10-27] MEDS: LEVETIRACETAM 500 MG (PMX) 100 ML IVPB SCH ×2 (09:46→21:55)
[2018-10-27] MEDS: OXCARBAZEPINE 300 MG TAB PO SCH ×2 (09:46→21:55)
[2018-10-27] MEDS: NIFEdipine (XL) 30 MG TAB PO SCH (09:47)
--- NOTE | 2018-10-27 11:19 | CONS ---
Assessment/Plan Assessment/Plan Assessment/Plan (Recall) 63 M c/ reported Hx of stroke c/b epilepsy, who presents for evaluation of ams. He was noted to have shaking episodes, for which neurology is consulted.. It is not clear if the shaking was epileptic from documentation... He has a noted peripheral leukocytosis, renal insufficiency of uncertain chr onicity, and evidence of NSTEMI; acute systemic illness could certainly lower his seizure threshold. As an aside, the same could additionally predispose to an acute toxic-metabolic on chronic encephalopathy... MRI brain is notable for sequelae of prior left hemispheric stroke, without obvious acute pathology. P: Agree w/ low dose Keppra for now, given renal insufficiency which has likely predisposed to Keppra toxicity on his outpatient dose of 2000mg bid.. Continue Trileptal for supplemental seizure ppx Ativan iv prn prolonged seizure of cluster Agree w/ asa for secondary stroke prevention Continued medical management and supportive care per primary PT/OT/ST as necessary Will follow clinically Consultation Date/Type/Reason Admit Date/Time Oct 24, 2018 at 17:29 Type of Consult Neurology Reason for Consultation shaking, ams Requesting Provider: SAKSHI CRUZ MD Date/Time of Note DATE: 10/27/18 TIME: 11:18 24 HR Interval Summary Free Text/Dictation More conversant today Continues acute care Exam/Review of Systems Exam Vitals Vital Signs Date Temp Pulse Resp B/P (MAP) Pulse Ox O2 O2 Flow FiO2 Time Delivery Rate 10/27/18 98.3 69 18 154/70 99 Nasal 2.0 07:07 (98) Cannula Intake and Output 10/26/18 10/26/18 10/27/18 1515:00 23:00 07:00 IntakeIntake Total 600 ml 650 ml 860 ml BalanceBalance 600 ml 650 ml 860 ml Results Result Diagram: 10/26/18 0742 10/26/18 0742 Medications Medication Current Medications Levetiracetam 100 ml @ 400 mls/hr BID IVPB Last administered on 10/27/18at 09:46; Admin Dose 400 MLS/HR; Start 10/25/18 at 09:00 Hydralazine HCl (Apresoline) 10 mg Q4H PRN IV ELEVATED SYSTOLIC BP Last administered on 10/26/18at 05:41; Admin Dose 10 MG; Start 10/25/18 at 05:30 Oxcarbazepine (Trileptal) 300 mg BID PO Last administered on 10/27/18 09:46; Ad min Dose 300 MG; Start 10/26/18 at 09:00 Aspirin (Halfprin) 81 mg DAILY PO Last administered on 10/27/18 09:46; Admin Dose 81 MG; Start 10/26/18 at 13:00 Carvedilol (Coreg) 6.25 mg BID PO Last administered on 10/27/18 09:46; Admin Dose 6.25 MG; Start 10/26/18 at 13:00 Nifedipine (Procardia Xl) 30 mg DAILY PO Last administered on 10/27/18 09:47; Admin Dose 30 MG; Start 10/26/18 at 13:00 Sodium Chloride 1,000 ml @ 70 mls/hr [id number] IV Last administered on 10/26/18at 22:59; Admin Dose 70 MLS/HR; Start 10/26/18 at 22:30; Stop 10/28/18 at 03:04 FLASH SPRAGUE Oct 27, 2018 11:19
--- NOTE | 2018-10-27 12:11 | CONS ---
Assessment/Plan Assessment/Plan Assessment/Plan (Daily) 1. acute kidney injury on CKD III due to Prerenal azotemia 2. H/o CKD III due to HTN 3. Breakthrough seizures with H/o Seizure disorder 4. H/o HTN 5. H/o HL 6. Elevated Troponin 7.Leucocytosis Plan: Nifdipien Xl 30mg po daily with coreg 6.25 mg BID IV keppra 500mg BID Medical management for elevated troponin BUN/Cr 32/1.81 other electrolytes stable- no labs today to review yet will give IVF NS at 70 cc/ hr x 2 liter then stop will follow up Consultation Date/Type/Reason Admit Date/Time Oct 24, 2018 at 17:29 Initial Consult Date 10/25/18 Type of Consult NEPHROLOGY Requesting Provider: SAKSHI CRUZ MD Date/Time of Note DATE: 10/27/18 TIME: 12:11 Exam/Review of Systems Exam Vitals Vital Signs Date Temp Pulse Resp B/P (MAP) Pulse Ox O2 O2 Flow FiO2 Time Delivery Rate 10/27/18 98.3 69 18 154/70 99 Nasal 2.0 07:07 (98) Cannula Intake and Output 10/26/18 10/26/18 10/27/18 1515:00 23:00 07:00 IntakeIntake Total 600 ml 650 ml 860 ml BalanceBalance 600 ml 650 ml 860 ml Results Result Diagram: 10/26/18 0742 10/26/18 0742 Medications Medication Current Medications Levetiracetam 100 ml @ 400 mls/hr BID IVPB Last administered on 10/27/18at 09:46; Admin Dose 400 MLS/HR; Start 10/25/18 at 09:00 Hydralazine HCl (Apresoline) 10 mg Q4H PRN IV ELEVATED SYSTOLIC BP Last administered on 10/26/18at 05:41; Admin Dose 10 MG; Start 10/25/18 at 05:30 Oxcarbazepine (Trileptal) 300 mg BID PO Last administered on 10/27/18at 09:46; Admin Dose 300 MG; Start 10/26/18 at 09:00 Aspirin (Halfprin) 81 mg DAILY PO Last administered on 10/27/18at 09:46; Admin Dose 81 MG; Start 10/26/18 at 13:00 Carvedilol (Coreg) 6.25 mg BID PO Last administered on 10/27/18 09:46; Admin Dose 6.25 MG; Start 10/26/18 at 13:00 Nifedipine (Procardia Xl) 30 mg DAILY PO Last administered on 10/27/18at 09:47; Admin Dose 30 MG; Start 10/26/18 at 13:00 Sodium Chloride 1,000 ml @ 70 mls/hr [id number] IV Last administered on 10/26/18at 22:59; Admin Dose 70 MLS/HR; Start 10/26/18 at 22:30; Stop 10/28/18 at 03:04 EVONNE WEBB MD Oct 27, 2018 12:11
[2018-10-27 12:22] VITALS: BP 125/60; PULSE 71; RESP 18
[2018-10-27] MEDS: SOD CHLORIDE 0.9% 1,000 ML IV SCH ×2 (12:48→17:04)
--- NOTE | 2018-10-27 14:36 | PN ---
Date/Time of Note Date/Time of Note DATE: 10/27/18 TIME: 14:23 Assessment/Plan VTE Prophylaxis Risk score (from Ns)>0 risk: 4 SCD applied (from Ns): Yes Pharmacological prophylaxis: other Lines/Catheters IV [facility]from [facility] Saline Lock Assessment/Plan Hospital Course Patient is awake alert no seizure activity reported, patient had an episode of wide-complex tachycardia continue to follow-up cardiology recommendation follow- up on 2D echo. CBC tomorrow. Assessment/Plan -Breakthrough seizure patient with history of epilepsy. Continue Keppra and Trileptal. Dr. Melendez is following in neurology consultation. -Atrial fibrillation currently converted to sinus rhythm. Dr. Cowart is following in cardiology consultation. -Elevated troponin, did down. Continue aspirin, follow-up on 2D echo. -Hypertension. Continue Coreg and Procardia. -Leukocytosis most likely secondary to breakthrough seizure, urinalysis is unremarkable, chest x-ray is negative for pneumonia. -Acute kidney injury on chronic kidney disease stage III. Dr. Wright is following in nephrology consultation. -History of cerebrovascular accident with right-sided weakness. Further recommendations based on clinical course. Plan of care discussed with Dr. Ugalde. Result Diagram: 10/26/18 0742 10/26/18 0742 Exam/Review of Systems Exam Vitals Vital Signs Date Temp Pulse Resp B/P (MAP) Pulse Ox O2 O2 Flow FiO2 Time Delivery Rate 10/27/18 98.3 71 18 125/60 98 Nasal 2.0 12:22 (81) Cannula Intake and Output 10/26/18 10/26/18 10/27/18 1515:00 23:00 07:00 IntakeIntake Total 600 ml 650 ml 860 ml BalanceBalance 600 ml 650 ml 860 ml Constitutional: alert Head: normocephalic Respiratory: clear to auscultation Cardiovascular: regular rate and rhythm Gastrointestinal: soft, non-tender Musculoskeletal: nl extremities to inspection Extremities: normal pulses Neurological: other (Right-sided weakness) Medications Medication Current Medications Levetiracetam 100 ml @ 400 mls/hr BID IVPB Last administered on 10/27/18at 09:46; Admin Dose 400 MLS/HR; Start 10/25/18 at 09:00 Hydralazine HCl (Apresoline) 10 mg Q4H PRN IV ELEVATED SYSTOLIC BP Last administered on 10/26/18 05:41; Admin Dose 10 MG; Start 10/25/18 at 05:30 Oxcarbazepine (Trileptal) 300 mg BID PO Last administered on 10/27/18 09:46; Admin Dose 300 MG; Start 10/26/18 at 09:00 Aspirin (Halfprin) 81 mg DAILY PO Last administered on 10/27/18 09:46; Admin Dose 81 MG; Start 10/26/18 at 13:00 Carvedilol (Coreg) 6.25 mg BID PO Last administered on 10/27/18 09:46; Admin Dose 6.25 MG; Start 10/26/18 at 13:00 Nifedipine (Procardia Xl) 30 mg DAILY PO Last administered on 10/27/18 09:47; Admin Dose 30 MG; Start 10/26/18 at 13:00 Sodium Chloride 1,000 ml @ 70 mls/hr [id number] IV Last administered on 10/26/18 22:59; Admin Dose 70 MLS/HR; Start 10/26/18 at 22:30; Stop 10/28/18 at 03:04 DALY TELLEZ Oct 27, 2018 14:36
[2018-10-27 15:27] VITALS: BP 147/69; PULSE 76; RESP 16
--- NOTE | 2018-10-27 17:39 | CONS ---
Assessment/Plan Assessment/Plan Hospital Course (Demo Recall) IMP: 1.Nstemi-minimal in the setting of renal failure 2.HTN-reasonable 3.seizure d/o 4.H/O CVA 5.renal failure 6. HL-LDL 179 HDL 33 Recc: -Tele -serial ecg's -Continue asa -trend cardiac enzymes -Contnue coreg/procardia with reasonable BP control -start statin -Continue keppra Consultation Date/Type/Reason Admit Date/Time Oct 24, 2018 at 17:29 Initial Consult Date 10/25/18 Type of Consult Cardiology Reason for Consultation positive troponin Requesting Provider: SAKSHI CRUZ MD Date/Time of Note DATE: 10/27/18 TIME: 17:34 Exam/Review of Systems Vital Signs Vitals Vital Signs Date Temp Pulse Resp B/P (MAP) Pulse Ox O2 O2 Flow FiO2 Time Delivery Rate 10/27/18 97.5 76 16 147/69 98 Nasal 2.0 15:27 (95) Cannula Intake and Output 10/26/18 10/26/18 10/27/18 1515:00 23:00 07:00 IntakeIntake Total 600 ml 650 ml 860 ml BalanceBalance 600 ml 650 ml 860 ml Exam Exam Review of Systems: CONSTITUTIONAL: No fevers, chills. PULMONARY: No sob CARDIOVASCULAR: No chest pain/palpitations GASTROINTESTINAL: No nausea/vomiting. GENITOURINARY: No hematuria/dysuria. MUSCULOSKELETAL: No myagias/arthalgias. PSYCHIATRIC: The patient denies depression. NEUROLOGIC: No weakness Constitutional: alert Psych: no complaints Head: normocephalic ENMT: mucosa pink and moist Neck: supple, jvd (9 cm water) Respiratory: diminished breath sounds Cardiovascular: regular rate and rhythm Gastrointestinal: soft, non-tender Musculoskeletal: muscle tone (normal) Extremities: edema (none) Neurological: other (No focal deficits) Labs Result Diagram: 10/26/18 0742 10/26/18 0742 Medications Medications Current Medications Levetiracetam 100 ml @ 400 mls/hr BID IVPB Last administered on 10/27/18at 09:46; Admin Dose 400 MLS/HR; Start 10/25/18 at 09:00 Hydralazine HCl (Apresoline) 10 mg Q4H PRN IV ELEVATED SYSTOLIC BP Last admi nistered on 10/26/18 05:41; Admin Dose 10 MG; Start 10/25/18 at 05:30 Oxcarbazepine (Trileptal) 300 mg BID PO Last administered on 10/27/18 09:46; Admin Dose 300 MG; Start 10/26/18 at 09:00 Aspirin (Halfprin) 81 mg DAILY PO Last administered on 10/27/18 09:46; Admin Dose 81 MG; Start 10/26/18 at 13:00 Carvedilol (Coreg) 6.25 mg BID PO Last administered on 10/27/18 09:46; Admin Dose 6.25 MG; Start 10/26/18 at 13:00 Nifedipine (Procardia Xl) 30 mg DAILY PO Last administered on 10/27/18 09:47; Admin Dose 30 MG; Start 10/26/18 at 13:00 Sodium Chloride 1,000 ml @ 70 mls/hr [id number] IV Last administered on 10/27/18 17:04; Admin Dose 70 MLS/HR; Start 10/26/18 at 22:30; Stop 10/28/18 at 03:04 Timolol Maleate (Timoptic 0.25%) 1 drop BID BOTH EYES ; Start 10/27/18 at 21:00 LAI LANDERS Oct 27, 2018 17:39
[2018-10-27 20:08] VITALS: BP 158/69; PULSE 87; RESP 18
[2018-10-27] MEDS: ATORVASTATIN 40 MG TAB PO SCH (21:55)
[2018-10-27] MEDS: TIMOLOL 0.25% 5 ML OPH BOTH EYES SCH (21:57)
[2018-10-28] VITALS (7 sets, daily range): BP systolic 134–166; BP diastolic 64–73; PULSE 72–88; RESP 18–22
[2018-10-28] MEDS: hydrALAzine 20 MG INJ IV PRN (04:39)
[2018-10-28] MEDS: LEVETIRACETAM 500 MG (PMX) 100 ML IVPB SCH ×2 (09:08→22:12)
[2018-10-28] MEDS: TIMOLOL 0.25% 5 ML OPH BOTH EYES SCH ×2 (09:08→22:15)
[2018-10-28] MEDS: ASPIRIN (EC) 81 MG TAB PO SCH (09:08)
[2018-10-28] MEDS: NIFEdipine (XL) 30 MG TAB PO SCH (09:10)
[2018-10-28] MEDS: OXCARBAZEPINE 300 MG TAB PO SCH ×2 (09:11→22:14)
--- NOTE | 2018-10-28 11:42 | CONS ---
Consult Date/Type/Reason Admit Date/Time Oct 24, 2018 at 17:29 Initial Consult Date 10/25/18 Requesting Provider: SAKSHI CRUZ MD Date/Time of Note DATE: 10/28/18 TIME: 11:41 Subjective NO acute events - pt comfortable - BP on high side - add RX as needed - no CP now. ROS: No fever, no chills, no nausea, no vomiting, no diarrhea/constipation No recent weight changes No chest pain, no PND, no orthopnea - improved SOB No dizziness, blurred vision No thirst, no heat or cold intolerance Objective Vitals Vital Signs Date Temp Pulse Resp B/P (MAP) Pulse Ox O2 O2 Flow FiO2 Time Delivery Rate 10/28/18 98.1 87 22 163/73 96 Nasal 2.0 07:56 (103) Cannula Intake and Output 10/27/18 10/27/18 10/28/18 1515:00 23:00 07:00 IntakeIntake Total 500 ml 150 ml BalanceBalance 500 ml 150 ml Exam General: WN/WD/NAD, AOx comfortable HEENT: Unicetric/atraumatic/EOMI (follow commands) NECK: JVD elevated, no thyromegaly Lymph: no lymphadenopathy HEART: regular with no S3, II/ systolic murmur at apex LUNGS: Coarse sounds ABD: soft, NT, ND, +BS : Intact Neuro: non focal SKIN: chronic changes EXT: trace edema Results/Medications Result Diagram: 10/28/18 0625 10/28/18 0625 Results 24 hrs Laboratory Tests Test 10/28/18 06:25 White Blood Count 13.3 H Red Blood Count 3.59 L Hemoglobin 10.4 L Hematocrit 31.8 L Mean Corpuscular Volume 88.6 Mean Corpuscular Hemoglobin 29.0 Mean Corpuscular Hemoglobin Concent 32.7 Red Cell Distribution Width 11.3 L Platelet Count 205 Mean Platelet Volume 11.7 H Immature Granulocytes % 0.300 Neutrophils % 73.7 Lymphocytes % 14.3 L Monocytes % 8.8 Eosinophils % 2.4 Basophils % 0.5 Nucleated Red Blood Cells % 0.0 Immature Granulocytes # 0.040 H Neutrophils # 9.8 H Lymphocytes # 1.9 Monocytes # 1.2 H Eosinophils # 0.3 Basophils # 0.1 Nucleated Red Blood Cells # 0.0 Sodium Level 143 Potassium Level 4.3 Chloride Level 111 H Carbon Dioxide Level 29 Anion Gap 3 L Blood Urea Nitrogen 25 H Creatinine 1.66 H Est Glomerular Filtrat Rate mL/min 51 L Glucose Level 222 H Calcium Level 8.6 Magnesium Level 1.8 Troponin I 0.919 *H Home Meds Reported Medications Acetaminophen* (Tylenol*) 325 Mg Tablet, 650 MG PO Q6H PRN for MILD PAIN LEVEL 1-3, TAB 10/24/18 Timolol Maleate* (Timoptic*) 0.25%-5ml Opht, 1 DROP BOTH EYES BID, #1 EA 10/24/18 Hydrocodone/Acetaminophen (Ramona 5-325 Tablet) 1 Each Tablet, 1 EACH PO Q6H PRN for FOR PAIN 4-01/29, TAB 10/24/18 Nitroglycerin* (Nitroglycerin* SL) 0.4 Mg Tab.subl, 0.4 MG SL Q5MIN PRN for CHEST PAIN, BOTTLE 10/24/18 Magnesium Hydroxide* (Milk Of Magnesia*) 400 Mg/5 Ml Oral.susp, 30 ML PO DAILY, ML 10/24/18 Levetiracetam* (Levetiracetam*) 1,000 Mg Tablet, 2000 MG PO BID, TAB 10/24/18 Hydralazine Hcl* (Hydralazine Hcl*) 25 Mg Tab, 25 MG PO Q6H PRN for IF SBP>150, #60 TAB 10/24/18 Sodium Phosphate,Tate-Dibasic (Enema Ready To Use) 133 Ml Enema, 118 ML RC NEEDED, ENEMA 10/24/18 Bisacodyl (Dulcolax) 10 Mg Supp.rect, 10 MG RC DAILY PRN for PRN, SUPP.RECT 10/24/18 Dorzolamide-Timolol* (Cosopt*) 2%-0.5% Pres Free Droperette, 1 DROP BOTH EYES BID, DROP 10/24/18 Carvedilol* (Carvedilol*) 12.5 Mg Tablet, 12.5 MG PO BID, #60 TAB HOLD IF SBP<110 OR HR<60 10/24/18 Lorazepam* (Lorazepam*) 1 Mg Tablet, 1 MG PO Q4H PRN for SEIZURES, #60 TAB STOP DATE 11/06/18 10/24/18 Aspirin* (Aspirin* Chew) 81 Mg Tab.chew, 81 MG PO DAILY, TAB.CHEW 10/24/18 Medications Current Medications Levetiracetam 100 ml @ 400 mls/hr BID IVPB Last administered on 10/28/18 09:08; Admin Dose 400 MLS/HR; Start 10/25/18 at 09:00 Hydralazine HCl (Apresoline) 10 mg Q4H PRN IV ELEVATED SYSTOLIC BP Last admin istered on 10/28/18 04:39; Admin Dose 10 MG; Start 10/25/18 at 05:30 Oxcarbazepine (Trileptal) 300 mg BID PO Last administered on 10/28/18 09:11; Admin Dose 300 MG; Start 10/26/18 at 09:00 Aspirin (Halfprin) 81 mg DAILY PO Last administered on 10/28/18 09:08; Admin Dose 81 MG; Start 10/26/18 at 13:00 Carvedilol (Coreg) 6.25 mg BID PO Last administered on 10/28/18 09:10; Admin Dose 6.25 MG; Start 10/26/18 at 13:00 Nifedipine (Procardia Xl) 30 mg DAILY PO Last administered on 10/28/18 09:10; Admin Dose 30 MG; Start 10/26/18 at 13:00 Timolol Maleate (Timoptic 0.25%) 1 drop BID BOTH EYES Last administered on 10/28/18 09:08; Admin Dose 1 DROP; Start 10/27/18 at 21:00 Atorvastatin Calcium (Lipitor) 40 mg HS PO Last administered on 10/27/18at 21:55; Admin Dose 40 MG; Start 10/27/18 at 21:00 Assessment/Plan Assessment/Plan (Daily) 1. Elevated troponin. The patient has minimally elevated troponins on presentation of unclear significance as the patient does not report any ashley chest pain. I think medical therapy is reasonable for now. We will add a small dose of aspirin to his regimen and continue to optimize blood pressure.NO CP now - con't to follow. 2. Hypertension. Blood pressure is on the high side, on medical regimen now. His creatinine is elevated. We will avoid LOKESH inhibitor, but I think some small dose of beta cedrick and nonspecific like calcium channel cedrick would be reasonable options. On meds. Will re-check before changing therapy. 3. Shortness of breath. We will follow up with a 2D echo.DD EF 55%. 4. Prior history of seizure. Defer to neurology team. Continue to follow. 5. History of cerebrovascular accident. Continue skin care as indicated. ROBERTO REYES MD Oct 28, 2018 11:42
--- NOTE | 2018-10-28 16:16 | PN ---
Date/Time of Note Date/Time of Note DATE: 10/28/18 TIME: 16:15 Assessment/Plan VTE Prophylaxis Risk score (from Ns)>0 risk: 4 SCD applied (from Ns): Yes Pharmacological prophylaxis: other Lines/Catheters IV [facility]ter [facility]from [facility] Saline Lock Assessment/Plan Hospital Course Patient is awake alert, no acute distress, patient denies any chest, pain no seizure activity noted. Patient's condition and plan of care discussed with RN. Assessment/Plan -Breakthrough seizure patient with history of epilepsy. Continue Keppra and Trileptal. Dr. Melendez is following in neurology consultation. -Atrial fibrillation currently converted to sinus rhythm. Dr. Cowart is following in cardiology consultation. -Elevated troponin, Continue aspirin, follow-up on 2D echo. -Hypertension. Continue Coreg and Procardia. -Leukocytosis most likely secondary to breakthrough seizure, urinalysis is u nremarkable, chest x-ray is negative for pneumonia. -Acute kidney injury on chronic kidney disease stage III. Dr. Wright is following in nephrology consultation. -History of cerebrovascular accident with right-sided weakness. Further recommendations based on clinical course. Plan of care discussed with Dr. Ugalde. Result Diagram: 10/28/18 0625 10/28/18 0625 Results 24hrs Laboratory Tests Test 10/28/18 06:25 White Blood Count 13.3 H Red Blood Count 3.59 L Hemoglobin 10.4 L Hematocrit 31.8 L Mean Corpuscular Volume 88.6 Mean Corpuscular Hemoglobin 29.0 Mean Corpuscular Hemoglobin Concent 32.7 Red Cell Distribution Width 11.3 L Platelet Count 205 Mean Platelet Volume 11.7 H Immature Granulocytes % 0.300 Neutrophils % 73.7 Lymphocytes % 14.3 L Monocytes % 8.8 Eosinophils % 2.4 Basophils % 0.5 Nucleated Red Blood Cells % 0.0 Immature Granulocytes # 0.040 H Neutrophils # 9.8 H Lymphocytes # 1.9 Monocytes # 1.2 H Eosinophils # 0.3 Basophils # 0.1 Nucleated Red Blood Cells # 0.0 Sodium Level 143 Potassium Level 4.3 Chloride Level 111 H Carbon Dioxide Level 29 Anion Gap 3 L Blood Urea Nitrogen 25 H Creatinine 1.66 H Est Glomerular Filtrat Rate mL/min 51 L Glucose Level 222 H Calcium Level 8.6 Magnesium Level 1.8 Troponin I 0.919 *H Exam/Review of Systems Exam Vitals Vital Signs Date Temp Pulse Resp B/P (MAP) Pulse Ox O2 O2 Flow FiO2 Time Delivery Rate 10/28/18 97.6 22 134/64 96 Room Air 2.0 16:08 (87) 10/28/18 87 07:56 Intake and Output 10/27/18 10/27/18 10/28/18 1515:00 23:00 07:00 IntakeIntake Total 500 ml 150 ml BalanceBalance 500 ml 150 ml Exam Constitutional: alert Head: normocephalic Respiratory: clear to auscultation Cardiovascular: regular rate and rhythm Gastrointestinal: soft, non-tender Musculoskeletal: nl extremities to inspection Extremities: normal pulses Neurological: other (Right-sided weakness) Results Results 24hrs Laboratory Tests Test 10/28/18 06:25 White Blood Count 13.3 H Red Blood Count 3.59 L Hemoglobin 10.4 L Hematocrit 31.8 L Mean Corpuscular Volume 88.6 Mean Corpuscular Hemoglobin 29.0 Mean Corpuscular Hemoglobin Concent 32.7 Red Cell Distribution Width 11.3 L Platelet Count 205 Mean Platelet Volume 11.7 H Immature Granulocytes % 0.300 Neutrophils % 73.7 Lymphocytes % 14.3 L Monocytes % 8.8 Eosinophils % 2.4 Basophils % 0.5 Nucleated Red Blood Cells % 0.0 Immature Granulocytes # 0.040 H Neutrophils # 9.8 H Lymphocytes # 1.9 Monocytes # 1.2 H Eosinophils # 0.3 Basophils # 0.1 Nucleated Red Blood Cells # 0.0 Sodium Level 143 Potassium Level 4.3 Chloride Level 111 H Carbon Dioxide Level 29 Anion Gap 3 L Blood Urea Nitrogen 25 H Creatinine 1.66 H Est Glomerular Filtrat Rate mL/min 51 L Glucose Level 222 H Calcium Level 8.6 Magnesium Level 1.8 Troponin I 0.919 *H Medications Medication Current Medications Levetiracetam 100 ml @ 400 mls/hr BID IVPB Last administered on 10/28/18at 09:08; Admin Dose 400 MLS/HR; Start 10/25/18 at 09:00 Hydralazine HCl (Apresoline) 10 mg Q4H PRN IV ELEVATED SYSTOLIC BP Last administered on 10/28/18at 04:39; Admin Dose 10 MG; Start 10/25/18 at 05:30 Oxcarbazepine (Trileptal) 300 mg BID PO Last administered on 10/28/18 09:11; Admin Dose 300 MG; Start 10/26/18 at 09:00 Aspirin (Halfprin) 81 mg DAILY PO Last administered on 10/28/18 09:08; Admin Dose 81 MG; Start 10/26/18 at 13:00 Carvedilol (Coreg) 6.25 mg BID PO Last administered on 10/28/18 09:10; Admin Dose 6.25 MG; Start 10/26/18 at 13:00 Nifedipine (Procardia Xl) 30 mg DAILY PO Last administered on 10/28/18 09:10; Admin Dose 30 MG; Start 10/26/18 at 13:00 Timolol Maleate (Timoptic 0.25%) 1 drop BID BOTH EYES Last administered on 10/28/18 09:08; Admin Dose 1 DROP; Start 10/27/18 at 21:00 Atorvastatin Calcium (Lipitor) 40 mg HS PO Last administered on 10/27/18 21:55; Admin Dose 40 MG; Start 10/27/18 at 21:00 DALY TELLEZ Oct 28, 2018 16:16
--- NOTE | 2018-10-28 17:05 | CONS ---
Assessment/Plan Assessment/Plan Assessment/Plan (Daily) 1. acute kidney injury on CKD III due to Prerenal azotemia 2. H/o CKD III due to HTN 3. Breakthrough seizures with H/o Seizure disorder 4. H/o HTN 5. H/o HL 6. Elevated Troponin 7.Leucocytosis Plan: Nifdipien Xl 30mg po daily with coreg 6.25 mg BID IV keppra 500mg BID Medical management for elevated troponin BUN/Cr 25/1.66 other electrolytes stable on IVF NS at 70 cc/ hr x 2 liter then stop will follow up Consultation Date/Type/Reason Admit Date/Time Oct 24, 2018 at 17:29 Initial Consult Date 10/25/18 Type of Consult NEPHROLOGY Requesting Provider: SAKSHI CRUZ MD Date/Time of Note DATE: 10/28/18 TIME: 17:05 Exam/Review of Systems Exam Vitals Vital Signs Date Temp Pulse Resp B/P (MAP) Pulse Ox O2 O2 Flow FiO2 Time Delivery Rate 10/28/18 97.6 22 134/64 96 Room Air 2.0 16:08 (87) 10/28/18 87 07:56 Intake and Output 10/27/18 10/27/18 10/28/18 1515:00 23:00 07:00 IntakeIntake Total 500 ml 150 ml BalanceBalance 500 ml 150 ml Exam Constitutional: alert, awake no acute distress Respiratory: clear to auscultation, diminished breath sounds Cardiovascular: regular rate and rhythm, nl pulses Gastrointestinal: soft, non-tender Musculoskeletal: muscle weakness, swelling (1-2+ pitting edema ) Extremities: normal pulses 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, nl mental status, nl speech, nl strength Results Result Diagram: 10/28/1862410/28/18624 Results 24hrs Laboratory Tests Test 10/28/18 06:25 White Blood Count 13.3 H Red Blood Count 3.59 L Hemoglobin 10.4 L Hematocrit 31.8 L Mean Corpuscular Volume 88.6 Mean Corpuscular Hemoglobin 29.0 Mean Corpuscular Hemoglobin Concent 32.7 Red Cell Distribution Width 11.3 L Platelet Count 205 Mean Platelet Volume 11.7 H Immature Granulocytes % 0.300 Neutrophils % 73.7 Lymphocytes % 14.3 L Monocytes % 8.8 Eosinophils % 2.4 Basophils % 0.5 Nucleated Red Blood Cells % 0.0 Immature Granulocytes # 0.040 H Neutrophils # 9.8 H Lymphocytes # 1.9 Monocytes # 1.2 H Eosinophils # 0.3 Basophils # 0.1 Nucleated Red Blood Cells # 0.0 Sodium Level 143 Potassium Level 4.3 Chloride Level 111 H Carbon Dioxide Level 29 Anion Gap 3 L Blood Urea Nitrogen 25 H Creatinine 1.66 H Est Glomerular Filtrat Rate mL/min 51 L Glucose Level 222 H Calcium Level 8.6 Magnesium Level 1.8 Troponin I 0.919 *H Medications Medication Current Medications Levetiracetam 100 ml @ 400 mls/hr BID IVPB Last administered on 10/28/18 09:08; Admin Dose 400 MLS/HR; Start 10/25/18 at 09:00 Hydralazine HCl (Apresoline) 10 mg Q4H PRN IV ELEVATED SYSTOLIC BP Last administered on 10/28/18 04:39; Admin Dose 10 MG; Start 10/25/18 at 05:30 Oxcarbazepine (Trileptal) 300 mg BID PO Last administered on 10/28/18 09:11; Admin Dose 300 MG; Start 10/26/18 at 09:00 Aspirin (Halfprin) 81 mg DAILY PO Last administered on 10/28/18 09:08; Admin Dose 81 MG; Start 10/26/18 at 13:00 Carvedilol (Coreg) 6.25 mg BID PO Last administered on 10/28/18 09:10; Admin Dose 6.25 MG; Start 10/26/18 at 13:00 Nifedipine (Procardia Xl) 30 mg DAILY PO Last administered on 10/28/18 09:10; Admin Dose 30 MG; Start 10/26/18 at 13:00 Timolol Maleate (Timoptic 0.25%) 1 drop BID BOTH EYES Last administered on 10/28/18 09:08; Admin Dose 1 DROP; Start 10/27/18 at 21:00 Atorvastatin Calcium (Lipitor) 40 mg HS PO Last administered on 10/27/18 21:55; Admin Dose 40 MG; Start 10/27/18 at 21:00 EVONNE WEBB MD Oct 28, 2018 17:05
[2018-10-28] MEDS: ATORVASTATIN 40 MG TAB PO SCH (22:13)
[2018-10-29] VITALS (9 sets, daily range): BP systolic 135–187; BP diastolic 63–84; PULSE 70–84; RESP 15–20
[2018-10-29] MEDS: hydrALAzine 20 MG INJ IV PRN ×2 (05:34→20:30)
[2018-10-29] MEDS: LEVETIRACETAM 500 MG (PMX) 100 ML IVPB SCH ×2 (09:15→20:32)
[2018-10-29] MEDS: TIMOLOL 0.25% 5 ML OPH BOTH EYES SCH ×2 (09:15→20:44)
[2018-10-29] MEDS: ASPIRIN (EC) 81 MG TAB PO SCH (09:16)
[2018-10-29] MEDS: NIFEdipine (XL) 30 MG TAB PO SCH (09:17)
[2018-10-29] MEDS: OXCARBAZEPINE 300 MG TAB PO SCH ×2 (09:18→20:40)
--- NOTE | 2018-10-29 10:02 | CONS ---
Assessment/Plan Assessment/Plan Assessment/Plan (Daily) 1. acute kidney injury on CKD III due to Prerenal azotemia 2. H/o CKD III due to HTN 3. Breakthrough seizures with H/o Seizure disorder 4. H/o HTN 5. H/o HL 6. Elevated Troponin 7.Leucocytosis Plan: Nifdipien Xl 30mg po daily with coreg 6.25 mg BID IV keppra 500mg BID Medical management for elevated troponin d/c to SNF today will follow up Consultation Date/Type/Reason Admit Date/Time Oct 24, 2018 at 17:29 Initial Consult Date 10/25/18 Type of Consult NEPHROLOGY Requesting Provider: SAKSHI CRUZ MD Date/Time of Note DATE: 10/29/18 TIME: 10:02 Exam/Review of Systems Exam Vitals Vital Signs Date Temp Pulse Resp B/P (MAP) Pulse Ox O2 O2 Flow FiO2 Time Delivery Rate 10/29/18 97.8 84 16 157/71 100 Nasal 07:29 (99) Cannula 10/29/18 2.0 06:30 Intake and Output 10/28/18 10/28/18 10/29/18 1515:00 23:00 07:00 IntakeIntake Total 350 ml 200 ml OutputOutput Total 200 ml 550 ml BalanceBalance 150 ml -350 ml Results Result Diagram: 10/28/1862410/28/18 06 Medications Medication Current Medications Levetiracetam 100 ml @ 400 mls/hr BID IVPB Last administered on 10/29/18at 09:15; Admin Dose 400 MLS/HR; Start 10/25/18 at 09:00 Hydralazine HCl (Apresoline) 10 mg Q4H PRN IV ELEVATED SYSTOLIC BP Last administered on 10/29/18at 05:34; Admin Dose 10 MG; Start 10/25/18 at 05:30 Oxcarbazepine (Trileptal) 300 mg BID PO Last administered on 10/29/18at 09:18; Admin Dose 300 MG; Start 10/26/18 at 09:00 Aspirin (Halfprin) 81 mg DAILY PO Last administered on 10/29/18at 09:16; Admin Dose 81 MG; Start 10/26/18 at 13:00 Carvedilol (Coreg) 6.25 mg BID PO Last administered on 10/29/18at 09:16; Admin Dose 6.25 MG; Start 10/26/18 at 13:00 Nifedipine (Procardia Xl) 30 mg DAILY PO Last administered on 10/29/18 09:17; Admin Dose 30 MG; Start 10/26/18 at 13:00 Timolol Maleate (Timoptic 0.25%) 1 drop BID BOTH EYES Last administered on 10/29/18 09:15; Admin Dose 1 DROP; Start 10/27/18 at 21:00 Atorvastatin Calcium (Lipitor) 40 mg HS PO Last administered on 10/28/18at 22:13; Admin Dose 40 MG; Start 10/27/18 at 21:00 EVONNE WEBB MD Oct 29, 2018 10:02
--- NOTE | 2018-10-29 10:03 | PDOCDIS ---
Discharge Instructions CONDITION [id number] Patient Condition: [id number] Good HOME CARE INSTRUCTIONS: [id number] Diet Instructions: [id number] Regular ACTIVITY: [id number] Activity Restrictions: [id number] Slowly Increase Activity Rest between Activity Avoid Heavy Housework FOLLOW UP/APPOINTMENTS Follow-up Plan Follow up with Dr Penny Webb At [facility]. Follow up with neurology as outpatient in 1-2 week EVONNE WEBB MD Oct 29, 2018 10:03
[2018-10-29] MEDS ORDERED: ATOR40TA68 PO (10:05)
[2018-10-29] MEDS ORDERED: NIFE30TA2 PO (10:05)
--- NOTE | 2018-10-29 11:53 | CONS ---
Assessment/Plan Assessment/Plan Hospital Course (Demo Recall) IMP: 1.Nstemi-minimal in the setting of renal failure with minimal uptrend. No Chest pain. Likley type 2 demand infarct 2.HTN-reasonable 3.seizure d/o 4.H/O CVA 5.renal failure 6. HL-LDL 179 HDL 33 Recc: -Tele -serial ecg's -Continue asa -trend cardiac enzymes -Contnue coreg/procardia with slight increase to improve BP control overall -Continue statin -Continue keppra Consultation Date/Type/Reason Admit Date/Time Oct 24, 2018 at 17:29 Initial Consult Date 10/25/18 Type of Consult Cardiology Reason for Consultation Nstemi/HTN Requesting Provider: SAKSHI CRUZ MD Date/Time of Note DATE: 10/29/18 TIME: 11:51 Exam/Review of Systems Vital Signs Vitals Vital Signs Date Temp Pulse Resp B/P (MAP) Pulse Ox O2 O2 Flow FiO2 Time Delivery Rate 10/29/18 97.8 84 16 157/71 100 Nasal 07:29 (99) Cannula 10/29/18 2.0 06:30 Intake and Output 10/28/18 10/28/18 10/29/18 1515:00 23:00 07:00 IntakeIntake Total 350 ml 200 ml OutputOutput Total 200 ml 550 ml BalanceBalance 150 ml -350 ml Exam Exam Review of Systems: CONSTITUTIONAL: No fevers, chills. PULMONARY: No sob CARDIOVASCULAR: No chest pain/palpitations GASTROINTESTINAL: No nausea/vomiting. GENITOURINARY: No hematuria/dysuria. MUSCULOSKELETAL: No myagias/arthalgias. PSYCHIATRIC: The patient denies depression. NEUROLOGIC: somewhat lethargic Constitutional: alert Psych: no complaints Head: normocephalic ENMT: mucosa pink and moist Neck: supple, jvd (9 cm water) Respiratory: diminished breath sounds (at bases/B) Cardiovascular: regular rate and rhythm Gastrointestinal: soft, non-tender Musculoskeletal: muscle weakness (mild generalized) Extremities: edema (none) Neurological: lethargic (somewhat) Labs Result Diagram: 10/29/18 1006 10/29/18 1006 Results 24hrs Laboratory Tests Test 10/29/18 10:06 White Blood Count 13.0 H Red Blood Count 3.39 L Hemoglobin 10.0 L Hematocrit 29.8 L Mean Corpuscular Volume 87.9 Mean Corpuscular Hemoglobin 29.5 Mean Corpuscular Hemoglobin Concent 33.6 Red Cell Distribution Width 11.1 L Platelet Count 198 Mean Platelet Volume 12.0 H Immature Granulocytes % 0.400 Neutrophils % 76.4 Lymphocytes % 13.2 L Monocytes % 7.3 Eosinophils % 2.4 Basophils % 0.3 Nucleated Red Blood Cells % 0.0 Immature Granulocytes # 0.050 H Neutrophils # 9.9 H Lymphocytes # 1.7 Monocytes # 1.0 H Eosinophils # 0.3 Basophils # 0.0 Nucleated Red Blood Cells # 0.0 Sodium Level 140 Potassium Level 4.2 Chloride Level 104 Carbon Dioxide Level 31 Anion Gap 5 Blood Urea Nitrogen 24 H Creatinine 1.66 H Est Glomerular Filtrat Rate mL/min 51 L Glucose Level 287 H Calcium Level 8.8 Medications Medications Current Medications Levetiracetam 100 ml @ 400 mls/hr BID IVPB Last administered on 10/29/18 09:15; Admin Dose 400 MLS/HR; Start 10/25/18 at 09:00 Hydralazine HCl (Apresoline) 10 mg Q4H PRN IV ELEVATED SYSTOLIC BP Last administered on 10/29/18 05:34; Admin Dose 10 MG; Start 10/25/18 at 05:30 Oxcarbazepine (Trileptal) 300 mg BID PO Last administered on 10/29/18 09:18; Admin Dose 300 MG; Start 10/26/18 at 09:00 Aspirin (Halfprin) 81 mg DAILY PO Last administered on 10/29/18 09:16; Admin Dose 81 MG; Start 10/26/18 at 13:00 Carvedilol (Coreg) 6.25 mg BID PO Last administered on 10/29/18 09:16; Admin Dose 6.25 MG; Start 10/26/18 at 13:00 Nifedipine (Procardia Xl) 30 mg DAILY PO Last administered on 10/29/18 09:17; Admin Dose 30 MG; Start 10/26/18 at 13:00 Timolol Maleate (Timoptic 0.25%) 1 drop BID BOTH EYES Last administered on 10/29/18 09:15; Admin Dose 1 DROP; Start 10/27/18 at 21:00 Atorvastatin Calcium (Lipitor) 40 mg HS PO Last administered on 7/9/19at 22:13; Admin Dose 40 MG; Start 10/27/18 at 21:00 LAI LANDERS Oct 29, 2018 11:53
--- NOTE | 2018-10-29 16:16 | RADRPT ---
Echocardiogram Report Patient Name: AYDIN ROWEPatient ID: [id number] : 1955 (63y 6m)Study Date: 10/28/2018 9:12:32 AM Gender: MAccession #: [id number] Tech: Everton Allan [facility] Location: [address] Ref.Physician: LAI IVAN Height(Cm): BSA: Weight(Kg): Quality: AdequateOrder Physician: LAI IVAN Account #: Procedures: Echocardiographic Report: Transthoracic echocardiogram with complete 2D, M-Mode, and doppler examination. Indications: NSTEMI. Measurements: 2D/M Mode Doppler Measurement Value Normal Range Measurement Value Normal Range LVIDd 2D 4.1 [ 4.2 - 5.8 ] cm AV Peak Kwame 1.4 [ 100.0 - 170.0 ] cm/sec LVIDs 2D 2.8 [ 2.5 - 4.0 ] cm AV Peak PG 8.0 [ 2.0 - 9.0 ] mmHg LVPWd 2D 1.1 [ 0.6 - 1.0 ] cm LVOT Peak Kwame 1.0 [ 70.0 - 110.0 ] cm/sec IVSd 2D 1.1 [ 0.6 - 1.0 ] cm LVOT Peak PG 4.0 [ 2.0 - 6.0 ] mmHg AoR Diam 2D 2.8 [ 2.6 - 3.4 ] cm MV E Peak Kwame 0.6 [ 60.0 - 130.0 ] cm/sec EDV 2D 75.9 [ 62.0 - 150.0 ] ml MV A Peak Kwame 0.9 [ 100.0 - 120.0 ] cm/sec ESV 2D 28.5 [ 21.0 - 61.0 ] ml MV E/A 0.7 [ 0.8 - 1.5 ] ratio EF 2D 62.5 [ 52.0 - 72.0 ] percent MV Decel Time 225 [ 104 - 258 ] msec LA Dimen 2D 3.6 [ 3.0 - 4.0 ] cm Lat E` Kwame 0.1 [ 10.0 - 15.0 ] cm/sec Lateral E/E` 9.0 [ 1.0 - 2.0 ] ratio Med E` Kwame 0.1 cm/sec MV E/A 0.7 [ 0.8 - 1.5 ] ratio RA Pressure 8.0 mmHg Findings: Left Ventricle: Normal left ventricular systolic function. Normal left ventricular cavity size. Mild concentric left ventricular hypertrophy. Ejection fraction is visually estimated at 55-60 %. Tissue Doppler/Mitral Doppler indices are consistent with impaired relaxation (Stage I diastolic dysfunction). Right Ventricle: Normal right ventricular size. Normal right ventricular systolic function. Left Atrium: The left atrium is normal in size. Right Atrium: The right atrium is normal in size. Mitral Valve: Mild mitral leaflet calcification. Mild mitral annular calcification. Trace mitral regurgitation. Aortic Valve: No significant aortic stenosis or insufficiency. Aortic cusps appear mildly calcified. Tricuspid Valve: Normal appearance of the tricuspid valve. Unable to obtain RVSP due to minimal presence of tricuspid regurgitation. Pericardium: Normal pericardium with no significant pericardial effusion. Aorta: Normal aortic root. IVC: Normal size with poor respiratory collapse consistent with elevated right atrial pressure. Conclusions: Normal left ventricular systolic function. Normal left ventricular cavity size. Mild concentric left ventricular hypertrophy. Ejection fraction is visually estimated at 55-60 %. Tissue Doppler/Mitral Doppler indices are consistent with impaired relaxation (Stage I diastolic dysfunction). Mild mitral leaflet calcification. Mild mitral annular calcification. Trace mitral regurgitation. Normal appearance of the tricuspid valve. Unable to obtain RVSP due to minimal presence of tricuspid regurgitation. Electronically Signed By: Lai Ivan 2018-10-29 16:15:47 PDT
[2018-10-29] MEDS: ATORVASTATIN 40 MG TAB PO SCH (20:32)
[2018-10-29] MEDS ORDERED: NIFEdipine (XL) 30 MG TAB PO SCH (21:00)
--- NOTE | 2018-11-03 09:48 | DS ---
Date/Time of Note Date/Time of Note DATE: 11/03/18 TIME: 09:42 Discharge Summary Admission/Discharge Info Admit Date/Time Oct 24, 2018 at 17:29 Discharge Date/Time Oct 29, 2018 at 21:17 Patient Condition: Stable Hx of Present Illness The patient is a 63-year-old male with a history of stroke, epilepsy, chronic confusion sent from custodial facility by Evonne Hernández due to increasing altered mental status since last night and episodes of shaking. Hospital Course -Breakthrough seizure patient with history of epilepsy. Continue Keppra and Trileptal. Dr. Melendez is following in neurology consultation. -Nstemi in the setting of renal failure. No Chest pain. Likley type 2 demand infarct. 2D Echo with EF 60%. Dr. Cowart/ Dr Ivan is following in cardiology consultation. -Atrial fibrillation currently converted to sinus rhythm. -Hypertension. Continue Coreg and Procardia. -Leukocytosis most likely secondary to breakthrough seizure, urinalysis is unremarkable, chest x-ray is negative for pneumonia. -Acute kidney injury on chronic kidney disease stage III. Dr. Wright is following in nephrology consultation. -History of cerebrovascular accident with right-sided weakness. Plan of care discussed with Dr. Ugalde. Home Meds Active Scripts Nifedipine (Procardia Xl) 30 Mg Tab.er.24, 30 MG PO DAILY, #90 TAB Prov:EVONNE WRIGHT MD 10/29/18 Atorvastatin* (Atorvastatin*) 40 Mg Tablet, 40 MG PO HS, #90 TAB Prov:EVONNE WRIGHT MD 10/29/18 Reported Medications Acetaminophen* (Tylenol*) 325 Mg Tablet, 650 MG PO Q6H PRN for MILD PAIN LEVEL 1-3, TAB 10/24/18 Timolol Maleate* (Timoptic*) 0.25%-5ml Opht, 1 DROP BOTH EYES BID, #1 EA 10/24/18 Hydrocodone/Acetaminophen ([place] 5-325 Tablet) 1 Each Tablet, 1 EACH PO Q6H PRN for FOR PAIN 4-01/29, TAB 10/24/18 Nitroglycerin* (Nitroglycerin* SL) 0.4 Mg Tab.subl, 0.4 MG SL Q5MIN PRN for CHEST PAIN, BOTTLE 10/24/18 Magnesium Hydroxide* (Milk Of Magnesia*) 400 Mg/5 Ml Oral.susp, 30 ML PO DAILY, ML 10/24/18 Levetiracetam* (Levetiracetam*) 1,000 Mg Tablet, 2000 MG PO BID, TAB 10/24/18 Hydralazine Hcl* (Hydralazine Hcl*) 25 Mg Tab, 25 MG PO Q6H PRN for IF SBP>150, #60 TAB 10/24/18 Sodium Phosphate,Clarke-Dibasic (Enema Ready To Use) 133 Ml Enema, 118 ML RC NEEDED, ENEMA 10/24/18 Bisacodyl (Dulcolax) 10 Mg Supp.rect, 10 MG RC DAILY PRN for PRN, SUPP.RECT 10/24/18 Dorzolamide-Timolol* (Cosopt*) 2%-0.5% Pres Free Droperette, 1 DROP BOTH EYES BID, DROP 10/24/18 Carvedilol* (Carvedilol*) 12.5 Mg Tablet, 12.5 MG PO BID, #60 TAB HOLD IF SBP<110 OR HR<60 10/24/18 Lorazepam* (Lorazepam*) 1 Mg Tablet, 1 MG PO Q4H PRN for SEIZURES, #60 TAB STOP DATE 11/06/18 10/24/18 Aspirin* (Aspirin* Chew) 81 Mg Tab.chew, 81 MG PO DAILY, TAB.CHEW 10/24/18 Follow-up Plan Follow up with Dr Penny Wright At [facility]. Follow up with neurology as outpatient in 1-2 week Primary Care Provider [facility] Nov 03, 2018 09:48
== END 2018-10-29 21:17 | DRG 682 ==
LOC: E/R 14:43 → TEL 17:29
PROVIDERS: ADMIT Internal Medicine; ATTEND Internal Medicine
DX: N17.9 Acute kidney failure, unspecified (principal); I21.4 Non-ST elevation (NSTEMI) myocardial infarction; I69.951 Hemiplegia and hemiparesis following unspecified cerebrovascular disease affecting right dominant side; E11.22 Type 2 diabetes mellitus with diabetic chronic kidney disease; I48.91 Unspecified atrial fibrillation; I12.9 Hypertensive chronic kidney disease with stage 1 through stage 4 chronic kidney disease, or unspecified chronic kidney disease; E78.5 Hyperlipidemia, unspecified; G40.909 Epilepsy, unspecified, not intractable, without status epilepticus; N18.3 Chronic kidney disease, stage 3 (moderate); I69.990 Apraxia following unspecified cerebrovascular disease; I25.10 Atherosclerotic heart disease of native coronary artery without angina pectoris; Z79.82 Long term (current) use of aspirin
CPT/HCPCS: 36415; 70450; 70551; 71045; 80048; 80053; 80061; 81001; 82962; 83735; 84100; 84484; 85025; 86703; 92610; 93005; 93306; 96360; 96361; J0360; J1953; J7030